=== PATIENT | female | born 1955 | race Caucasian/White ===

== ENCOUNTER 2024-01-08 13:45 | Emergency (ER) | payer OTHER, SELFPAY ==
[2024-01-08] MEDS ORDERED: Ketorolac Tromethamine 30 MG (1 mL) VIAL ONE (18:44)
[2024-01-08] MEDS ORDERED: Dexamethasone 10 MG/ML VIAL ONE (18:45)
[2024-01-09] MEDS ORDERED: hydrALAZINE 25 MG TAB ONE (10:12)
== END 2024-01-08 19:24 | disposition left against medical advice (07) ==
LOC: ERS 13:45
DX: Z53.21 Procedure and treatment not carried out due to patient leaving prior to being seen by health care provider (principal)
CPT/HCPCS: J1100; J1885

== ENCOUNTER 2024-01-09 08:07 | Emergency (ER) | payer SELFPAY ==
[2024-01-09] MEDS ORDERED: Acetaminophen 500 MG TAB ONE (09:06)
[2024-01-09] MEDS ORDERED: Ketorolac Tromethamine 30 MG (1 mL) VIAL ONE (09:06)
[2024-01-09] MEDS ORDERED: hydrALAZINE 25 MG TAB ONE (10:16)
== END 2024-01-09 11:32 | disposition home or self-care (01) ==
LOC: ERS 08:07
DX: I10 Essential (primary) hypertension (principal); R51.9 Headache, unspecified; Z87.891 Personal history of nicotine dependence
CPT/HCPCS: 93005; 96374; J1885

== ENCOUNTER 2024-09-22 08:58 | Outpatient (CLI) | payer OTHER | END 2024-09-22 08:59 | disposition home or self-care (01) | LOC: RAD 08:58 | PROVIDERS: ATTEND Internal Medicine Critical Care Medicine | DX: R06.00 Dyspnea, unspecified (principal) | CPT/HCPCS: 71046 ==